=== PATIENT | female | born 1950 | race Caucasian/White ===

== ENCOUNTER 2018-10-03 13:10 | Emergency (ER) | payer MEDICARE ==
[~2018-10-03] VITALS: Ht 157.5 cm; Wt 88.9 kg
[2018-10-03 13:53] VITALS: BP 148/80
[2018-10-03] MEDS ORDERED: ipratropium/albuterol 3ml nebule NEB ONE (17:35)
[2018-10-03] MEDS ORDERED: AZIT250T PO (17:38)
[2018-10-03] MEDS ORDERED: BENZ-16 PO (17:38)
[2018-10-03] MEDS ORDERED: ALBU18HF2 INH (17:40)
== END 2018-10-03 17:30 | disposition home or self-care (01) ==
LOC: ER 13:10
DX: J22 Unspecified acute lower respiratory infection (principal); Z88.8 Allergy status to other drugs, medicaments and biological substances; Z79.2 Long term (current) use of antibiotics; Z79.899 Other long term (current) drug therapy
CPT/HCPCS: 94640; 94760; 99283